=== PATIENT | male | born 1990 | race African-American/Black ===

== ENCOUNTER 2016-11-16 11:24 | Emergency (ER) | payer SELFPAY | END 2016-11-16 12:27 | disposition home or self-care (01) | LOC: FER 11:24 | DX: K04.7 Periapical abscess without sinus (principal); F17.200 Nicotine dependence, unspecified, uncomplicated | CPT/HCPCS: 99282 ==

== ENCOUNTER 2021-08-26 17:19 | Emergency (ER) | payer OTHER ==
[~2021-08-26 17:19] MED LIST: NAPROXEN500 MG PO; PENICILLIN V P250 M1 PO
== END 2021-08-26 19:13 | disposition home or self-care (01) ==
LOC: FER 17:19
DX: S16.1XXA Strain of muscle, fascia and tendon at neck level, initial encounter (principal); F17.200 Nicotine dependence, unspecified, uncomplicated; V43.62XA Car passenger injured in collision with other type car in traffic accident, initial encounter
CPT/HCPCS: 70450; 72125